=== PATIENT | female | born 1990 | race Caucasian/White ===

== ENCOUNTER 2019-11-11 10:48 | Outpatient (CLI) | payer OTHER | END 2019-11-11 23:59 | disposition home or self-care (01) | LOC: STAR 10:48 | PROVIDERS: ATTEND Anesthesiology | DX: Z01.818 Encounter for other preprocedural examination (principal); Z11.59 Encounter for screening for other viral diseases | CPT/HCPCS: 36415; 87635 ==

== ENCOUNTER 2019-11-16 08:12 | Day surgery (SDC) | payer OTHER ==
[~2019-11-16] VITALS: Ht 167.6 cm; Wt 85.0 kg
[2019-11-16] MEDS ORDERED: BUPIVACAINE/PF 0.5% ONE (08:40)
[2019-11-16] MEDS ORDERED: LACTATED RINGERS 1,000 ML IV SCH (08:42)
[2019-11-16 08:45] VITALS: BP 137/74
[2019-11-16] MEDS ORDERED: CHLORHEXIDINE 15 ML UDC ONE (08:48)
[2019-11-16] MEDS ORDERED: CHLORHEXIDINE 15 ML UDC MM ONE (09:00)
[2019-11-16 09:07] LABS: HCG UR SG 1.035 (1.003-1.030)
[2019-11-16] MEDS ORDERED: NONE PER PT (09:20)
[2019-11-16] MEDS ORDERED: MIDAZOLAM 1 MG/ML, 2ML ONE (09:22)
[2019-11-16] MEDS ORDERED: FENTANYL PF 250 MCG/5ML ONE (09:22)
[2019-11-16] MEDS ORDERED: BUPIVACAINE/PF 0.25% ONE (09:27)
[2019-11-16] MEDS ORDERED: MEPERIDINE/PF 25MG/0.5ML IVPush PRN (09:30)
[2019-11-16] MEDS ORDERED: ACETAMINOPHEN 325 MG TABLET PO PRN (09:30)
[2019-11-16] MEDS ORDERED: PROMETHAZINE 25 MG/ML, 1ML IVPush PRN (09:30)
[2019-11-16] MEDS ORDERED: ONDANSETRON 2MG/ML, 2ML IVPush PRN (09:30)
[2019-11-16] MEDS ORDERED: FENTANYL PF 100 MCG/2ML IV PRN (09:30)
[2019-11-16] MEDS ORDERED: HYDROmorphone 1 MG/ML, 1ML INJ IVPush PRN (09:30)
[2019-11-16] MEDS ORDERED: OXYcodone 5 MG/5 ML ORAL.SOL UDC PO PRN (09:30)
[2019-11-16] MEDS ORDERED: DEXAMETHASONE 4 MG/ML, 1ML ONE ×2 (09:34)
[2019-11-16] MEDS ORDERED: CEFAZOLIN 1,000 MG ONE (09:39)
[2019-11-16] MEDS ORDERED: KETOROLAC 30 MG/1 ML ONE (09:51)
[2019-11-16] MEDS ORDERED: PROPOFOL 10 MG/ML, 20ML ONE (09:51)
[2019-11-16] MEDS ORDERED: ONDANSETRON 2MG/ML, 2ML ONE (09:52)
== END 2019-11-16 11:40 | disposition home or self-care (01) ==
LOC: OR 08:12 → OUT 11:40
PROVIDERS: ATTEND Surgery Surgery of the Hand
DX: M67.432 Ganglion, left wrist (principal)
CPT/HCPCS: 25111; 81025; J0690; J1100; J1885; J2250; J2405; J2704; J3010; J3490; J7120